=== PATIENT | female | born 1995 | race Caucasian/White ===

== ENCOUNTER 2020-05-13 07:33 | Inpatient (IN) | payer BC ==
[2020-05-13] MEDS ORDERED: Ondansetron 4 MG/2 ML SDV IVPUSH PRN ×2 (19:08→22:53)
[2020-05-13] MEDS ORDERED: Ampicillin 2 GM in Sodium Chloride 0.9% 100 ML IV ONE (19:08)
[2020-05-13] MEDS ORDERED: Sodium Chloride 0.9% 10 ML Syringe FLUSH PRN (19:08)
[2020-05-13] MEDS ORDERED: Nalbuphine 10 MG/1 ML Vial IVPUSH PRN (19:08)
[2020-05-13] MEDS ORDERED: Oxytocin/Lactated Ringers 10 UNIT/1,000 ML BAG IV SCH ×2 (19:15)
--- NOTE | 2020-05-13 19:16 | PCM.LDHP ---
L&D History of Present Illness - General Date of Service: 05/13/20 Admit Problem/Dx: Patient Status Order with Admit Dx/Problem 05/13/20 19:08 Patient Status [ADT] Routine Admission Diagnosis/Problem Admission Diagnosis/Problem Normal in third trimester Source of Information: Patient History Limitations: Reports: No Limitations - History of Present Illness Introduction:: Patient is a 25 y/o at 39 1/7 wks who presents for elective IOL. Doing well today. 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 Para: 1 LMP (Approximate): Hematologic History: Reports: Anemia - Past Surgical History HEENT Surgical History: Reports: Tonsillectomy Musculoskeletal Surgical History: Reports: Shoulder Surgery, Other (See Below) Other Musculoskeletal Surgeries/Procedures:: Rt shoulder surgery, Lt knee surgery, Lt ankle, Clavicle fracture Social & Family History - Family History Family Medical History: No Pertinent Family History - Tobacco Use Tobacco Use Status *Q: Never Tobacco User - Caffeine Use Caffeine Use: Reports: None - Alcohol Use Alcohol Use History: No - Recreational Drug Use Recreational Drug Use: No H&P Review of Systems - Review of Systems: Review Of Systems: See Below General: Reports: No Symptoms Pulmonary: Reports: No Symptoms Cardiovascular: Reports: No Symptoms Gastrointestinal: Reports: No Symptoms Genitourinary: Reports: No Symptoms Musculoskeletal: Reports: No Symptoms Neurological: Reports: No Symptoms L&D Exam - Exam Exam: See Below - OB Specific Contraction Intensity: Irritability Movement: Active Heart Tones: Present Heart Tones per Min: 140 Heart Rate (FHR) Variability: Moderate (6-25 bmp) Presentation: Vertex - Crenshaw Score Crenshaw Score Cervix Position: Posterior Crenshaw Score Consistency: Soft Crenshaw Score Effacement: 31-50% Crenshaw Score Dilation: 1-2 cm Crenshaw Score 's Station: -3 Crenshaw Score Total: 4 - Exam General: Alert, Oriented, Cooperative Lungs: Clear to Auscultation, Normal Respiratory Effort Cardiovascular: Regular Rate, Regular Rhythm GI/Abdominal Exam: Soft, Non-Tender Genitourinary: Normal external exam Extremities: Normal Inspection Skin: Warm, Dry, Intact - Patient Data Result Diagrams: 05/13/20 19:35 - Problem List (1) 39 weeks gestation of SNOMED Code(s): 99263455 ICD Code: Z3A.39 - 39 WEEKS GESTATION OF Status: Acute Current Visit: No (2) GBS carrier SNOMED Code(s): 9933513227229 ICD Code: Z22.330 - CARRIER OF GROUP B STREPTOCOCCUS Status: Acute Current Visit: Yes Problem List Initiated/Reviewed/Updated: Yes Orders Last 24hrs: Active Orders 24 hr Category Date Time Status Patient Status [ADT] Routine ADT 05/13/20 19:08 Ordered Activity as Tolerated [RC] PFP Care 05/13/20 19:08 Ordered Communication Order [RC] ASDIRECTED Care 05/13/20 19:08 Ordered Communication Order [RC] ASDIRECTED Care 05/13/20 19:08 Ordered Communication Order [RC] ASDIRECTED Care 05/13/20 19:08 Ordered Heart Tones [RC] ASDIRECTED Care 05/13/20 19:10 Ordered Non Stress Test [RC] PER UNIT ROUTINE Care 05/13/20 19:08 Ordered Notify Provider [RC] ASDIRECTED Care 05/13/20 19:08 Ordered Notify Provider [RC] PRN Care 05/13/20 19:08 Ordered Peripheral IV Care [RC] . DIRECTED Care 05/13/20 19:10 Ordered Up ad Ana [RC] ASDIRECTED Care 05/13/20 19:10 Ordered Vaginal Exam [RC] ASDIRECTED Care 05/13/20 19:08 Ordered Vital Signs [RC] ASDIRECTED Care 05/13/20 19:08 Ordered Regular Diet [DIET] Diet 05/13/20 Dinner Ordered CBC W/O DIFF,HEMOGRAM [HEME] Routine Lab 05/13/20 19:08 Ordered CORONAVIRUS COVID-19 SHARATH [MOLEC] Stat Lab 05/13/20 19:15 Ordered RAPID PLASMA REAGIN,RPR [CHEM] Routine Lab 05/13/20 19:08 Ordered TYPE AND SCREEN [BBK] Routine Lab 05/13/20 19:08 Ordered Ampicillin 1 gm Med 05/13/20 19:15 Ordered Sodium Chloride 0.9% [Normal Saline] 100 ml IV Q4H Ampicillin 2 gm Med 05/13/20 19:08 Ordered Sodium Chloride 0.9% [Normal Saline] 100 ml IV ONETIME Lactated Ringers [Ringers, Lactated] 1,000 ml Med 05/13/20 19:15 Ordered IV ASDIRECTED Nalbuphine [Nubain] Med 05/13/20 19:08 Ordered 10 mg IVPUSH Q2H PRN Ondansetron [Zofran] Med 05/13/20 19:08 Ordered 4 mg IVPUSH Q4H PRN Oxytocin/Lactated Ringers [Pitocin in LR 10 Units/1,000 Med 05/13/20 19:15 Ordered ML] 10 unit in 1,000 ml IV .CONTINUOUS Oxytocin/Lactated Ringers [Pitocin in LR 10 Units/1,000 Med 05/13/20 19:15 Ordered ML] 10 unit in 1,000 ml IV TITRATE Sodium Chloride 0.9% [Saline Flush] Med 05/13/20 19:08 Ordered 10 ml FLUSH ASDIRECTED PRN Electronic Heart Tones Ext w TOCO [WOMSER] Oth 05/13/20 19:08 Ordered Routine Electronic Heart Tones Internal [WOMSER] Per Unit Ot 05/13/20 19:08 Ordered Routine Peripheral IV Insertion Adult [OM.PC] Routine Oth 05/13/20 19:08 Ordered Resuscitation Status Routine Resus Stat 05/13/20 19:08 Ordered Assessment/Plan Comment:: * Labs done * GBS carrier, Ampicillin started * Pitocin for IOL. AROM after 2nd dose of antibiotics * Pain management per patient preference * Anticipate
[2020-05-13] MEDS: Lactated Ringers 1,000 ML IV SCH ×3 (20:07→23:29)
[2020-05-13] MEDS ORDERED: ePHEDrine 50 MG/ML SDV IVPUSH PRN (22:53)
--- NOTE | 2020-05-13 22:55 | PCM.PREANE ---
Preanesthetic Assessment - Procedure Proposed Procedure: Epidural - Anesthesia/Transfusion/Family Hx Anesthesia History: Prior Anesthesia Without Reaction Family History of Anesthesia Reaction: No Transfusion History: No Prior Transfusion(s) Intubation History: Unknown - Review of Systems General: No Symptoms Pulmonary: No Symptoms (ETOH: rarely when not ) Cardiovascular: No Symptoms Gastrointestinal: No Symptoms (GERD) Neurological: No Symptoms Other: Reports: None - Physical Assessment NPO Status Date: 05/13/20 NPO Status Time: 21:00 Vital Signs: Last Vital Signs Temp 36.7 C 05/13/20 19:26 Pulse 91 05/13/20 19:26 Resp 14 05/13/20 19:26 BP 109/57 L 05/13/20 19:26 Pulse Ox 97 05/13/20 19:26 Height: 1.68 m Weight: 79.605 kg ASA Class: 2 Mental Status: Alert & Oriented x3 Airway Class: Mallampati = 2 Dentition: Reports: Normal Dentition, Caries Thyro-Mental Finger Breadths: 3 Mouth Opening Finger Breadths: 3 ROM/Head Extension: Full Lungs: Clear to Auscultation, Normal Respiratory Effort Cardiovascular: Regular Rate, Regular Rhythm, No Murmurs - Lab Values: Laboratory Last Values WBC 10.01 K/mm3 (3.98-10.04) 05/13/20 19:35 RBC 4.17 M/mm3 (3.98-5.22) 05/13/20 19:35 Hgb 10.4 gm/dl (11.2-15.7) L D 05/13/20 19:35 Hct 32.5 % (34.1-44.9) L 05/13/20 19:35 MCV 77.9 fl (79.4-94.8) L D 05/13/20 19:35 MCH 24.9 pg (25.6-32.2) L 05/13/20 19:35 MCHC 32.0 g/dl (32.2-35.5) L 05/13/20 19:35 RDW Std Deviation 42.8 fL (36.4-46.3) 05/13/20 19:35 Plt Count 198 K/mm3 (182-369) 05/13/20 19:35 MPV 12.4 fl (9.4-12.3) H 05/13/20 19:35 RPR Non-reactive (NONREACTIVE) 05/13/20 19:35 SARS-CoV-2 RNA (SHARATH) Negative (NEGATIVE) 05/13/20 19:30 Blood Type A POSITIVE 05/13/20 19:35 Gel Antibody Screen Negative 05/13/20 19:35 Above labs reviewed and noted and within acceptable ranges to proceed with epidural. 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 (See Below) Other OB/BYN History: Irregular menstrual cycle Hematologic History: Reports: Anemia Dermatologic History: Reports: Other (See Below) Other Dermatologic History: skin condition-on clindamycin 300mg BID - Past Surgical History HEENT Surgical History: Reports: Tonsillectomy Musculoskeletal Surgical History: Reports: Shoulder Surgery, Other (See Below) Other Musculoskeletal Surgeries/Procedures:: Rt shoulder surgery, Lt knee surgery, Lt ankel fractur - SUBSTANCE USE Tobacco Use Status *Q: Never Tobacco User Second Hand Smoke Exposure: No Recreational Drug Use History: No - HOME MEDS Home Medications: Home Meds Vits #93/Iron Fum/FA [ Formula Tablet] 1 tab PO DAILY 05/13/20 [History] - CURRENT (IN HOUSE) MEDS Current Meds: Current Medications Oxytocin/Lactated Ringer's (Pitocin In Lr 10 Units/1,000 Ml) 10 unit in 1,000 mls @ 12 mls/hr IV TITRATE FERNANDO; Protocol Last Titration: 05/13/20 22:20 Dose: 8 munits/min, 48 mls/hr Documented by: Ampicillin Sodium 1 gm/ Sodium (Chloride) 100 mls @ 200 mls/hr IV Q4H FERNANDO Oxytocin/Lactated Ringer's (Pitocin In Lr 10 Units/1,000 Ml) 10 unit in 1,000 mls @ 500 mls/hr IV .CONTINUOUS FERNANDO Lactated Ringer's (Ringers, Lactated) 1,000 mls @ 40 mls/hr IV ASDIRECTED FERNANDO Last Admin: 05/13/20 22:45 Dose: 40 mls/hr Documented by: Nalbuphine HCl (Nubain) 10 mg IVPUSH Q2H PRN PRN Reason: Pain Ondansetron HCl (Zofran) 4 mg IVPUSH Q4H PRN PRN Reason: Nausea/Vomiting Sodium Chloride (Saline Flush) 10 ml FLUSH ASDIRECTED PRN PRN Reason: Keep Vein Open Discontinued Medications Ampicillin Sodium 2 gm/ Sodium (Chloride) 100 mls @ 200 mls/hr IV ONETIME ONE Stop: 05/13/20 19:37 Last Admin: 05/13/20 20:10 Dose: 200 mls/hr Documented by:
[2020-05-13] MEDS ORDERED: fentaNYL 100 MCG/2 ML SDV ONE (22:56)
[2020-05-13] MEDS ORDERED: Bupivacaine/fentaNYL/NS 100 ML Bag EPIDUR SCH (23:00)
[2020-05-13] MEDS: fentaNYL 100 MCG/2 ML SDV EPIDUR PRN (23:00)
[2020-05-14] MEDS ORDERED: Lidocaine 1.5% with EPINEPHrine 1:200,000 5 ML Amp ONE
[2020-05-14] MEDS ORDERED: Bupivacaine 0.25% 10 ML SDV ONE
[2020-05-14] MEDS: Ampicillin 1 GM in Sodium Chloride 0.9% 100 ML IV SCH ×3 (00:02→21:59)
[2020-05-14] MEDS: Lactated Ringers 1,000 ML IV SCH ×2 (02:13→06:56)
[2020-05-14] MEDS ORDERED: diphenhydrAMINE 50 MG/ML SDV IVPUSH ONE (03:01)
[2020-05-14] MEDS ORDERED: diphenhydrAMINE 50 MG/ML SDV ONE (03:03)
[2020-05-14] MEDS: fentaNYL 100 MCG/2 ML SDV EPIDUR PRN (04:19)
--- NOTE | 2020-05-14 07:04 | PCM.PNLD ---
Labor Progress Note - VS & Meds Vital Signs: Last Vital Signs Temp 36.7 C 05/13/20 19:26 Pulse 91 05/13/20 19:26 Resp 14 05/13/20 19:26 BP 109/57 L 05/13/20 19:26 Pulse Ox 97 05/13/20 19:26 Active Medications: Current Medications Ephedrine Sulfate (Ephedrine Sulfate) 5 mg IVPUSH ASDIRECTED PRN PRN Reason: Hypotension Fentanyl (Sublimaze) 100 mcg EPIDUR Q3H PRN PRN Reason: Pain Last Admin: 05/14/20 04:19 Dose: 100 mcg Documented by: Fentanyl/Bupivacaine HCl (Fentanyl/Bupivacaine/Ns 2 Mcg-0.125% 100 Ml) 100 ml EPIDUR ASDIRECTED FERNANDO Last Admin: 05/13/20 23:02 Dose: 100 ml Documented by: Oxytocin/Lactated Ringer's (Pitocin In Lr 10 Units/1,000 Ml) 10 unit in 1,000 mls @ 12 mls/hr IV TITRATE FERNANDO; Protocol Last Titration: 05/14/20 06:31 Dose: 16 munits/min, 96 mls/hr Documented by: Ampicillin Sodium 1 gm/ Sodium (Chloride) 100 mls @ 200 mls/hr IV Q4H FERNANDO Last Admin: 05/14/20 03:54 Dose: 200 mls/hr Documented by: Oxytocin/Lactated Ringer's (Pitocin In Lr 10 Units/1,000 Ml) 10 unit in 1,000 mls @ 500 mls/hr IV .CONTINUOUS FERNANDO Lactated Ringer's (Ringers, Lactated) 1,000 mls @ 40 mls/hr IV ASDIRECTED FERNANDO Last Admin: 05/14/20 06:56 Dose: 40 mls/hr Documented by: Nalbuphine HCl (Nubain) 10 mg IVPUSH Q2H PRN PRN Reason: Pain Ondansetron HCl (Zofran) 4 mg IVPUSH Q4H PRN PRN Reason: Nausea/Vomiting Ondansetron HCl (Zofran) 4 mg IVPUSH ONETIME PRN PRN Reason: Nausea/Vomiting Sodium Chloride (Saline Flush) 10 ml FLUSH ASDIRECTED PRN PRN Reason: Keep Vein Open Discontinued Medications Diphenhydramine HCl (Benadryl) 50 mg IVPUSH ONETIME ONE Stop: 05/14/20 03:02 Last Admin: 05/14/20 03:07 Dose: 50 mg Documented by: Diphenhydramine HCl (Benadryl) Confirm Administered Dose 50 mg .ROUTE .STK-MED ONE Stop: 05/14/20 03:04 Last Admin: 05/14/20 04:25 Dose: Not Given Documented by: Fentanyl (Sublimaze) Confirm Administered Dose 100 mcg .ROUTE .STK-MED ONE Stop: 05/13/20 22:57 Last Admin: 05/13/20 23:59 Dose: Not Given Documented by: Ampicillin Sodium 2 gm/ Sodium (Chloride) 100 mls @ 200 mls/hr IV ONETIME ONE Stop: 05/13/20 19:37 Last Admin: 05/13/20 20:10 Dose: 200 mls/hr Documented by: Miscellaneous Medication (Phenylephrine 1 Mg/10 Ml-Ns) 0 mg IVPUSH ONETIME ONE Stop: 05/13/20 22:54 - Uterine Contractions Uterine Monitoring Mode: External [place] Contraction Intensity: Moderate to Strong Uterine Resting Tone: Soft - Monitoring Monitor Mode: External Ultrasound Heart Rate (FHR) Baseline: 135 Heart Rate (FHR) Variability: Moderate (6-25 bmp) Accelerations: Present, 15x15 Decelerations: Variable Strip Review: Category II - Vaginal Exam Dilation (cm): 6-7 Effacement (Percent): 80 Station: -2 Cervical Position: Anterior - Labor Progress (Free Text) Labor Progress: Doing well. Pitocin at 14. Continue present management. Anticipate
[2020-05-14] MEDS ORDERED: Methylergonovine 0.2 MG/1 ML Amp IM STA (07:55)
--- NOTE | 2020-05-14 07:55 | PCM.DEL ---
L & D Note - General Info Date of Service: 05/14/20 - Delivery Note Labor: Induced by ARM, Induced by Oxytocin Delivery Outcome: Livebirth Infant Delivery Method: Spontaneous Vaginal Delivery-Single Infant Delivery Mode: Spontaneous Presentation: Left Occiput Anterior (GALINA) Nuchal Cord: None Anesthesia Type: Epidural Amniotic Fluid Description: Clear Episiotomy Type: None Laceration: 2nd Degree, Perineal Suture type: Vicryl Suture size: 2-0 Placenta: Intact, Spontaneous Cord: 3 Vessels Estimated Blood Loss: 300 Resuscitation Needed: Yes [place]: Bulb Syringe, Stimulated, [place] Used, Warmer Used Delivery Comments (Free Text/Narrative):: Patient found to be complete and began pushing. With maternal pushing effort head delivered from an GALINA presentation. No nuchal cord. With gentle downward traction shoulders and body delivered. Infant placed on maternal abdomen. Cord clamped and cut. Cord blood obtained. Placenta allowed time to separate and expelled intact. Inspection of perineum showed small 2nd degree which was repaired with a 2-0 Vicryl in the typical fashion. Patient with moderate bleeding and slight atony. Given 0.2 mg of methergine with good response - General Info Date of Service: 05/14/20 - Patient Data Vitals - Most Recent: Last Vital Signs Temp 36.7 C 05/13/20 19:26 Pulse 91 05/13/20 19:26 Resp 14 05/13/20 19:26 BP 109/57 L 05/13/20 19:26 Pulse Ox 97 05/13/20 19:26 Weight - Most Recent: 79.605 kg I&O - Last 24 Hours: Intake & Output 05/13/20 05/14/20 05/14/20 22:59 06:59 14:59 Intake Total 1200 Output Total 2049 Balance -850 - Problem List & Annotations (1) 39 weeks gestation of SNOMED Code(s): 74223988 Code(s): Z3A.39 - 39 WEEKS GESTATION OF Status: Acute Current Visit: No (2) GBS carrier SNOMED Code(s): 8352306209270 Code(s): Z22.330 - CARRIER OF GROUP B STREPTOCOCCUS Status: Acute Current Visit: Yes (3) (spontaneous vaginal delivery) SNOMED Code(s): 461349753 Code(s): O80 - ENCOUNTER FOR FULL-TERM UNCOMPLICATED DELIVERY Status: Acute Current Visit: No - Problem List Review Problem List Initiated/Reviewed/Updated: Yes - My Orders Last 24 Hours: My Active Orders 05/13/20 Dinner Regular Diet [DIET] 05/13/20 19:08 Patient Status [ADT] Routine Activity as Tolerated [RC] PFP Communication Order [RC] ASDIRECTED Communication Order [RC] ASDIRECTED Communication Order [RC] ASDIRECTED Non Stress Test [RC] PER UNIT ROUTINE Notify Provider [RC] ASDIRECTED Notify Provider [RC] PRN Vaginal Exam [RC] ASDIRECTED Vital Signs [RC] ASDIRECTED Nalbuphine [Nubain] 10 mg IVPUSH Q2H PRN Ondansetron [Zofran] 4 mg IVPUSH Q4H PRN Sodium Chloride 0.9% [Saline Flush] 10 ml FLUSH ASDIRECTED PRN Electronic Heart Tones Ext w TOCO [WOMSER] Routine Electronic Heart Tones Internal [WOMSER] Per Unit Routine Peripheral IV Insertion Adult [OM.PC] Routine Resuscitation Status Routine 05/13/20 19:10 Heart Tones [RC] ASDIRECTED Peripheral IV Care [RC] . DIRECTED Up ad Ana [RC] ASDIRECTED 05/13/20 19:15 Lactated Ringers [Ringers, Lactated] 1,000 ml IV ASDIRECTED Oxytocin/Lactated Ringers [Pitocin in LR 10 Units/1,000 ML] 10 unit in 1,000 ml IV .CONTINUOUS Oxytocin/Lactated Ringers [Pitocin in LR 10 Units/1,000 ML] 10 unit in 1,000 ml IV TITRATE 05/13/20 23:00 Ampicillin 1 gm Sodium Chloride 0.9% [Normal Saline] 100 ml IV Q4H - Assessment Assessment:: PPD#0 - Plan Plan:: * Routine cares * Breast feeding * Discharge home in 1-2 days
[2020-05-14] MEDS ORDERED: Docusate Sodium 100 MG Cap PO PRN (08:09)
[2020-05-14] MEDS ORDERED: Witch Hazel Medicated Pads 40/Jar TOP PRN (08:09)
[2020-05-14] MEDS ORDERED: Benzocaine/Menthol 20%-0.5% Spray 56 GM Canister TOP PRN (08:09)
[2020-05-14] MEDS ORDERED: Acetaminophen 325 MG Tab PO PRN (08:09)
[2020-05-14] MEDS: Ibuprofen 600 MG Tab PO PRN ×2 (09:05→20:44)
[2020-05-15] MEDS: Ibuprofen 600 MG Tab PO PRN (03:01)
--- NOTE | 2020-05-15 08:06 | PCM.DCSUM1 ---
Discharge Summary - Hospital Course Brief History: Doing well. Expresses desire for discharge home Diagnosis: Stroke: No - Discharge Data Discharge Date: 05/15/20 Discharge Disposition: Home, Self-Care 01 Condition: Good - Referral to Home Health Primary Care Physician: Charis Weiss MD - Patient Instructions Diet: Usual Diet as Tolerated Activity: No Strenuous Activities Activity, Other: pelvic rest Driving: May Drive Today Showering/Bathing: May Shower Notify Provider of: Fever, Increased Pain, Swelling and Redness, Drainage, Nausea and/or Vomiting - Discharge Plan *PRESCRIPTION DRUG MONITORING PROGRAM REVIEWED*: No *COPY OF PRESCRIPTION DRUG MONITORING REPORT IN PATIENT MARISSA: No Home Medications: Home Meds Vits #93/Iron Fum/FA [ Formula Tablet] 1 tab PO DAILY 05/13/20 [History] Referrals: Leigh Clay MD [Physician] - - Discharge Summary/Plan Comment DC Time >30 min.: No - Patient Data Vitals - Most Recent: Last Vital Signs Temp 36.7 C 05/15/20 02:59 Pulse 77 05/15/20 02:59 Resp 16 05/15/20 02:59 BP 113/62 05/15/20 02:59 Pulse Ox 99 05/15/20 02:59 Weight - Most Recent: 79.605 kg Med Orders - Current: Current Medications Acetaminophen (Tylenol) 650 mg PO Q4H PRN PRN Reason: mild pain or fever Benzocaine/Menthol (Dermoplast Pain Relief [place]) 0 gm TOP ASDIRECTED PRN PRN Reason: Perineal Comfort Measure Docusate Sodium (Colace) 100 mg PO BID PRN PRN Reason: Constipation Ibuprofen (Motrin) 600 mg PO Q6H PRN PRN Reason: Mild pain or fever Last Admin: 05/15/20 03:01 Dose: 600 mg Documented by: Asael Segal) 1 pad TOP ASDIRECTED PRN PRN Reason: Perineal Comfort Measure Discontinued Medications Bupivacaine HCl (Sensorcaine-Mpf 0.25%) 20 ml .ROUTE .STK-MED ONE Stop: 05/14/20 00:01 Diphenhydramine HCl (Benadryl) 50 mg IVPUSH ONETIME ONE Stop: 05/14/20 03:02 Last Admin: 05/14/20 03:07 Dose: 50 mg Documented by: Diphenhydramine HCl (Benadryl) Confirm Administered Dose 50 mg .ROUTE .STK-MED ONE Stop: 05/14/20 03:04 Last Admin: 05/14/20 04:25 Dose: Not Given Documented by: Ephedrine Sulfate (Ephedrine Sulfate) 5 mg IVPUSH ASDIRECTED PRN PRN Reason: Hypotension Fentanyl (Sublimaze) 100 mcg EPIDUR Q3H PRN PRN Reason: Pain Last Admin: 05/14/20 04:19 Dose: 100 mcg Documented by: Fentanyl (Sublimaze) Confirm Administered Dose 100 mcg .ROUTE .STK-MED ONE Stop: 05/13/20 22:57 Last Admin: 05/13/20 23:59 Dose: Not Given Documented by: Fentanyl/Bupivacaine HCl (Fentanyl/Bupivacaine/Ns 2 Mcg-0.125% 100 Ml) 100 ml E PIDUR ASDIRECTED FERNANDO Last Admin: 05/13/20 23:02 Dose: 100 ml Documented by: Oxytocin/Lactated Ringer's (Pitocin In Lr 10 Units/1,000 Ml) 10 unit in 1,000 mls @ 12 mls/hr IV TITRATE FERNANDO; Protocol Last Titration: 05/14/20 06:31 Dose: 16 munits/min, 96 mls/hr Documented by: Ampicillin Sodium 2 gm/ Sodium (Chloride) 100 mls @ 200 mls/hr IV ONETIME ONE Stop: 05/13/20 19:37 Last Admin: 05/13/20 20:10 Dose: 200 mls/hr Documented by: Ampicillin Sodium 1 gm/ Sodium (Chloride) 100 mls @ 200 mls/hr IV Q4H FERNANDO Last Admin: 05/14/20 21:59 Dose: Not Given Documented by: Oxytocin/Lactated Ringer's (Pitocin In Lr 10 Units/1,000 Ml) 10 unit in 1,000 mls @ 500 mls/hr IV .CONTINUOUS FERNANDO Last Admin: 05/14/20 07:45 Dose: 500 mls/hr Documented by: Lactated Ringer's (Ringers, Lactated) 1,000 mls @ 40 mls/hr IV ASDIRECTED FERNANDO Last Admin: 05/14/20 06:56 Dose: 40 mls/hr Documented by: Lidocaine/Epinephrine (Xylocaine-Mpf 1.5% W/Epinephrine 1:200,000) 5 ml .ROUTE .STK-MED ONE Stop: 05/14/20 00:01 Methylergonovine Maleate (Methergine) 0.2 mg IM NOW STA Stop: 05/14/20 07:56 Last Admin: 05/14/20 07:40 Dose: 0.2 mg Documented by: Miscellaneous Medication (Phenylephrine 1 Mg/10 Ml-Ns) 0 mg IVPUSH ONETIME ONE Stop: 05/13/20 22:54 Last Admin: 05/14/20 07:22 Dose: Not Given Documented by: Nalbuphine HCl (Nubain) 10 mg IVPUSH Q2H PRN PRN Reason: Pain Ondansetron HCl (Zofran) 4 mg IVPUSH Q4H PRN PRN Reason: Nausea/Vomiting Ondansetron HCl (Zofran) 4 mg IVPUSH ONETIME PRN PRN Reason: Nausea/Vomiting Sodium Chloride (Saline Flush) 10 ml FLUSH ASDIRECTED PRN PRN Reason: Keep Vein Open
--- NOTE | 2020-05-15 09:47 | PCM48HPAN ---
Post Anesthesia Note - EVALUATION WITHIN 48HRS OF ANESTHETIC Vital Signs in Normal Range: Yes Patient Participated in Evaluation: Yes Respiratory Function Stable: Yes Airway Patent: Yes Cardiovascular Function Stable: Yes Hydration Status Stable: Yes Pain Control Satisfactory: Yes Nausea and Vomiting Control Satisfactory: Yes Mental Status Recovered: Yes Vital Signs: Last Vital Signs Temp 98.1 F 05/15/20 02:59 Pulse 77 05/15/20 02:59 Resp 16 05/15/20 02:59 BP 113/62 05/15/20 02:59 Pulse Ox 99 05/15/20 02:59 - COMMENTS/OBSERVATIONS Free Text/Narrative:: Patient is on her day 1. Stated understanding about possible backaches following epidural anesthesia. Mentions having some minor back soreness at this time. Explanation given about importance of avoiding back straining. Denies any headache or lightheadedness at this time. Comfortable now. Ambulating, no difficulty urinating.
== END 2020-05-15 11:25 | disposition home or self-care (01) | DRG 560 ==
LOC: JD.OB 07:33 → OBSVTOIN 05-14 07:33 → JD.OB 05-14 07:34
PROVIDERS: ADMIT Obstetrics & Gynecology; ATTEND Obstetrics & Gynecology
PROC: 10E0XZZ Delivery of Products of Conception, External Approach (ICD-10-PCS; principal; 2020-05-14)
PROC: 10907ZC Drainage of Amniotic Fluid, Therapeutic from Products of Conception, Via Natural or Artificial Opening (ICD-10-PCS; 2020-05-14)
PROC: 0KQM0ZZ Repair Perineum Muscle, Open Approach (ICD-10-PCS; 2020-05-14)
DX: O99.824 Streptococcus B carrier state complicating childbirth (principal); O99.02 Anemia complicating childbirth; D64.9 Anemia, unspecified; Z3A.39 39 weeks gestation of pregnancy; Z37.0 Single live birth; O70.1 Second degree perineal laceration during delivery; Z20.828 Contact with and (suspected) exposure to other viral communicable diseases
CPT/HCPCS: 01967; 36415; 51702; 59025; 59409; 85027; 86592; 86850; 86900; 86901; A9270-GY; J0290; J1200; J2210; J2590; J3010; J3490; J7050; J7120; U0002

== ENCOUNTER 2021-11-01 15:46 | Emergency (ER) | payer BC | END 2021-11-01 17:40 | disposition home or self-care (01) | LOC: JD.ED 15:46 | DX: S93.401A Sprain of unspecified ligament of right ankle, initial encounter (principal); Z72.0 Tobacco use; X50.1XXA Overexertion from prolonged static or awkward postures, initial encounter | CPT/HCPCS: 73610-26-RT; 73610-RT; 99283-25 ==

== ENCOUNTER 2022-03-25 09:23 | Emergency (ER) | payer BC ==
[2022-03-25] MEDS ORDERED: Bacitracin Oint 15 GM Tube ONE (09:54)
== END 2022-03-25 10:05 ==
LOC: JD.ED 09:23
DX: S60.445A External constriction of left ring finger, initial encounter (principal); W49.04XA Ring or other jewelry causing external constriction, initial encounter
CPT/HCPCS: 99283; A9270-GY